=== PATIENT | male | born 1950 | race Caucasian/White ===

== ENCOUNTER 2017-08-18 13:31 | Emergency (ER) | payer MEDICARE, OTHER ==
--- NOTE | 2017-08-18 13:37 | ED.PDOC ---
History of Present Illness - General Chief Complaint: Trauma Stated Complaint: Head injury Time Seen by Provider: 08/18/17 13:33 Source: patient Exam Limitations: no limitations - History of Present Illness Timing/Duration: 1 hour Severity: moderate Improving Factors: nothing Worsening Factors: nothing Associated Symptoms: headaches Allergies/Adverse Reactions: Allergies NO KNOWN ALLERGY Allergy (Verified 08/18/17 13:44) Home Medications: Ambulatory Orders Ketorolac Tromethamine [Toradol Tabs] 10 mg PO Q6HRS PRN #15 tab 08/18/17 Review of Systems - Review of Systems Constitutional: Denies: malaise, weakness EENTM: Denies: blurred vision, double vision, ear pain Respiratory: States: no symptoms reported. Denies: short of breath Cardiology: States: no symptoms reported. Denies: chest pain Gastrointestinal/Abdominal: Denies: abdominal pain, nausea, vomiting Genitourinary: States: no symptoms reported Musculoskeletal: States: joint pain - R shoulder. Denies: back pain Skin: Denies: lesions, rash Neurological: States: headache. Denies: numbness, paresthesia, pre-existing deficit, weakness Endocrine: States: no symptoms reported Past Medical History (General) - Patient Medical History Surgical History: cholecystectomy - Social History Hx Tobacco Use: No Hx Alcohol Use: No Hx Substance Use: No Family Medical History - Family History Mother Family History: Unknown Physical Exam - Physical Exam General Appearance: Alert, Comfortable Eye Exam: bilateral normal Ears, Nose, Throat: hearing grossly normal, normal ENT inspection, normal pharynx Neck: full range of motion, supple, normal inspection Respiratory: chest non-tender, lungs clear, normal breath sounds Cardiovascular/Chest: normal peripheral pulses, regular rate, rhythm, no edema Gastrointestinal/Abdominal: normal bowel sounds, non tender, soft Back Exam: normal inspection, no vertebral tenderness Extremity: normal inspection, no pedal edema, other - R shoulder has decreased ROM from pain over anterior aspect 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, no motor/sensory deficits, alert, oriented x 3 Skin Exam: normal color, warm/dry, other - laceration over parietal scalp at crown Departure - Departure Clinical Impression: Contusion of scalp Qualifiers: Encounter type: initial encounter Qualified Code(s): S00.03XA - Contusion of scalp, initial encounter Strain of neck muscle Qualifiers: Encounter type: initial encounter Qualified Code(s): S16.1XXA - Strain of muscle, fascia and tendon at neck level, initial encounter Strain of shoulder, right Qualifiers: Encounter type: initial encounter Qualified Code(s): S46.911A - Strain of unspecified muscle, fascia and tendon at shoulder and upper arm level, right arm , initial encounter Laceration of scalp Qualifiers: Encounter type: initial encounter Qualified Code(s): S01.01XA - Laceration without foreign body of scalp, initial encounter Disposition: Discharge to Home or Self Care Departure Forms: ED Discharge - Pt. Copy, Patient Portal Self Enrollment Instructions: DI for Trauma Prescriptions: Ketorolac Tromethamine [Toradol Tabs] 10 mg PO Q6HRS PRN #15 tab PRN Reason: Moderate To Severe Pain Home Medications: Ambulatory Orders Ketorolac Tromethamine [Toradol Tabs] 10 mg PO Q6HRS PRN #15 tab 08/18/17
[2017-08-18 13:46] VITALS: TEMP 98.8; O2SAT 97
--- NOTE | 2017-08-18 14:49 | CT ---
EXAM DESCRIPTION: CT Cervical Spine (accession [id number]), CT Head (accession [id number]) CLINICAL HISTORY: 66 years Male head injury COMPARISON: None TECHNIQUE: Noncontrast axial scans of the brain and the cervical spine were obtained. Sagittal and coronal reformatted images were performed. This exam was performed according to our departmental dose-optimization program, which includes automated exposure control, adjustment of the mA and/or kV according to patient size and/or use of iterative reconstruction technique. FINDINGS: Images of the brain demonstrate no evidence of acute intracranial hemorrhage, extracerebral fluid collection, hydrocephalus, midline shift, obvious mass effect, or major territorial infarction. There is slight prominence of cortical sulci, mainly in the upper convexity. Pacheco-white distinction is preserved. The bony calvarium appears intact, with no evidence of acute fracture. Probable small arachnoid granulations in the frontal area. Images of the cervical spine demonstrate no evidence of acute fracture or dislocation or destructive bony lesion. Facets and lateral masses are aligned. Straightening of the usual lordosis and questionable minimal right convex scoliosis may be related to patient positioning. Degenerative changes are noted, mainly at C5-6, where there is interspace narrowing and bony encroachment on the neural foramina, greater on the right than the left. There also appears to be minimal narrowing of the C6-7 interspace. No significant bony spinal canal stenosis. No prevertebral soft tissue swelling is identified. IMPRESSION: 1. No evidence of acute intracranial hemorrhage. 2. No evidence of acute osseous injury involving the cervical spine. Degenerative changes noted. Electronically signed by: Blake Hinkle MD 08/18/2017 2:48 PM CDT
--- NOTE | 2017-08-18 14:55 | RAD ---
EXAM DESCRIPTION: Shoulder,Right 2 or More Views CLINICAL HISTORY: fall from ladder, pain COMPARISON: None FINDINGS: Two views of the right shoulder were submitted. There is no discrete acute fracture or dislocation. Bone mineralization is within normal limits. There is no radiopaque foreign body material. Focal sclerosis at the mid humeral shaft may represent an area of prior bone infarct. There are degenerative changes at the level of the humeral head. IMPRESSION: No acute fracture or dislocation. Electronically signed by: Olegario Bob MD 08/18/2017 2:54 PM CDT
[2017-08-18 15:28] VITALS: BP 158/86
== END 2017-08-18 15:28 | disposition home or self-care (01) ==
LOC: ER 13:31
DX: S00.03XA Contusion of scalp, initial encounter (principal); S16.1XXA Strain of muscle, fascia and tendon at neck level, initial encounter; S46.911A Strain of unspecified muscle, fascia and tendon at shoulder and upper arm level, right arm, initial encounter; S01.01XA Laceration without foreign body of scalp, initial encounter; X58.XXXA Exposure to other specified factors, initial encounter; Y92.9 Unspecified place or not applicable